=== PATIENT | female | born 1935 | race Caucasian/White ===

== ENCOUNTER 2017-12-24 23:11 | Emergency (ER) | payer MEDICARE ==
[~2017-12-24] VITALS: Ht 170.2 cm; Wt 70.5 kg
[~2017-12-24 23:11] MED LIST: ESTR0.6261 PO; MELA1TAB17 PO; OXYC-138 PO; OXYC-145 PO; PREG75CA30 PO; SYN0.0125T PO; TRAZ-143 PO
[2017-12-24] MEDS ORDERED: morphine 4 MG/ML inj SYRINge IV ONE (23:40)
[2017-12-24 23:57] LABS: BASOPHILS # (AUTO) 0.1 X10'3 (0-0.2); BASOPHILS % (AUTO) 1.4 % (0-1); EOSINOPHILS % (AUTO) 0.2 % (0-6); HEMATOCRIT 36.8 % (35.0-45.0); HEMOGLOBIN 12.3 g/dl (12.0-16.0); LYMPHOCYTES # (AUTO) 0.6 X10'3 (1.1-4.8); LYMPHOCYTES % (AUTO) 8.3 % (21-51); MEAN CORPUSCULAR HEMOGLOBIN 29.9 PG (27.0-31.0); MEAN CORPUSCULAR HGB CONC 33.5 % (33.0-36.5); MEAN CORPUSCULAR VOLUME 89.1 FL (78-98); MEAN PLATELET VOLUME 8.3 FL (7.4-10.4); MONOCYTES # (AUTO) 0.4 X10'3 (0-0.9); NEUTROPHILS # (AUTO) 5.6 X10'3 (1.8-7.7); NEUTROPHILS % (AUTO) 84.1 % (42-75); PLATELET COUNT 120 X10'3 (140-440); RED BLOOD COUNT 4.13 X10'6 (4.20-5.60); RED CELL DISTRIBUTION WIDTH 14.3 % (11.5-14.5); WHITE BLOOD COUNT 6.6 X10'3 (4.5-11.0)
[2017-12-25 00:09] LABS: PARTIAL THROMBOPLASTIN TIME 29 SECONDS (22-32)
[2017-12-25 00:13] LABS: ALANINE AMINOTRANSFERASE 28 U/L (12-78); ALBUMIN 2.7 G/DL (3.4-5.0); ALBUMIN/GLOBULIN RATIO 0.7 (1.1-1.5); ALKALINE PHOSPHATASE 229 IU/L (46-116); ANION GAP 4 (8-16); ASPARTATE AMINO TRANSFERASE 35 U/L (10-37); BILIRUBIN,TOTAL 0.6 MG/DL (0.1-1.0); BLOOD UREA NITROGEN 17 MG/DL (7-18); BUN/CREATININE RATIO 15.3 (6.6-38.0); CALCIUM 8.8 MG/DL (8.5-10.1); CHLORIDE 100 MMOL/L (99-107); CREATININE 1.11 MG/DL (0.40-0.90); GLUCOSE 114 MG/DL (70-104); POTASSIUM 4.3 MMOL/L (3.5-5.1); SODIUM 131 MMOL/L (135-145); TOTAL CARBON DIOXIDE 26.6 MMOL/L (24-32); TOTAL PROTEIN 6.5 G/DL (6.4-8.2); eGFR 47 ML/MIN
[2017-12-25 00:22] LABS: MAGNESIUM 2.2 MG/DL (1.5-2.4); TROPONIN I < 0.04 NG/ML (0.0-0.05)
[2017-12-25] MEDS ORDERED: oxyCODONE/APAP 10/325mg tablet PO ONE (01:45)
[2017-12-25 02:03] VITALS: BP 126/48
== END 2017-12-25 02:04 | disposition home or self-care (01) ==
LOC: ER 23:11
DX: S70.02XA Contusion of left hip, initial encounter (principal); J44.9 Chronic obstructive pulmonary disease, unspecified; F17.210 Nicotine dependence, cigarettes, uncomplicated; Z98.890 Other specified postprocedural states; Z88.8 Allergy status to other drugs, medicaments and biological substances; Z79.899 Other long term (current) drug therapy; Z95.0 Presence of cardiac pacemaker; W18.30XA Fall on same level, unspecified, initial encounter; Y93.89 Activity, other specified; Y92.89 Other specified places as the place of occurrence of the external cause; Y99.8 Other external cause status
CPT/HCPCS: 36415; 71045; 73502; 80053; 83605; 83735; 83880; 84145; 84484; 85025; 85610; 85730; 87040; 96374; 99285; J2270

== ENCOUNTER 2017-12-28 07:54 | Inpatient (IN) | payer MEDICARE ==
[~2017-12-28] VITALS: Ht 167.6 cm; Wt 75.9 kg
[~2017-12-28 07:54] MED LIST changes: -TRAZ-143 PO; +TRAZ-218 PO
[2017-12-28] MEDS ORDERED: normal saline 1000ML IV soln IVB ONE ×2 (08:20→09:50)
[2017-12-28] MEDS ORDERED: naloxone 2mg/2ml inj IV ONE (08:20)
[2017-12-28 09:01] LABS: BASOPHILS % (AUTO) 0.5 % (0-1); EOSINOPHILS # (AUTO) 0.1 X10'3 (0-0.9); EOSINOPHILS % (AUTO) 2.7 % (0-6); HEMATOCRIT 33.5 % (35.0-45.0); HEMOGLOBIN 11.4 g/dl (12.0-16.0); LYMPHOCYTES # (AUTO) 1.5 X10'3 (1.1-4.8); MEAN CORPUSCULAR HEMOGLOBIN 30.3 PG (27.0-31.0); MEAN PLATELET VOLUME 7.9 FL (7.4-10.4); MONOCYTES # (AUTO) 0.4 X10'3 (0-0.9); MONOCYTES % (AUTO) 7.8 % (2-12); NEUTROPHILS # (AUTO) 3.2 X10'3 (1.8-7.7); PLATELET COUNT 147 X10'3 (140-440); RED BLOOD COUNT 3.76 X10'6 (4.20-5.60); RED CELL DISTRIBUTION WIDTH 14.7 % (11.5-14.5); WHITE BLOOD COUNT 5.3 X10'3 (4.5-11.0)
[2017-12-28 09:04] LABS: CLARITY,URINE CLOUDY (Clear); COLOR,URINE YELLOW (Yellow); GLUCOSE, URINE NEGATIVE (Neg); KETONES,URINE TRACE mg/dl (Neg); LEUKOCYTE ESTERASE ,URINE MODERATE (Neg); NITRITES, URINE NEGATIVE (Neg); OCCULT BLOOD,URINE NEGATIVE (Neg); PROTEIN,URINE NEGATIVE (Neg)
[2017-12-28 09:09] LABS: UA COLLECTION TYPE STRAIGHT CATH
[2017-12-28 09:10] LABS: PROTHROMBIN TIME 10.1 SECONDS (9.0-12.0); URINE AMPHETAMINE SCREEN NEGATIVE (Neg); URINE BARBITUATE SCREEN NEGATIVE (Neg); URINE BENZODIAZEPINES SCREEN NEGATIVE (Neg); URINE CANNABINOID SCREEN NEGATIVE (Neg); URINE COCAINE SCREEN NEGATIVE (Neg); URINE METHADONE SCREEN NEGATIVE (Neg); URINE OPIATE SCREEN POSITIVE (Neg); URINE PHENCYCLIDINE SCREEN NEGATIVE (Neg)
[2017-12-28 09:13] LABS: BACTERIA,URINE 4+ /HPF (Neg); MUCUS STRANDS MANY /LPF (Neg); RBC,URINE 0-2 /HPF (0-2); SQUAMOUS EPITHELIAL CELL,UR MODERATE /LPF (FEW); WBC,URINE TNTC /HPF (0-4)
[2017-12-28 09:16] LABS: ALANINE AMINOTRANSFERASE 66 U/L (12-78); ALBUMIN 2.3 G/DL (3.4-5.0); ALBUMIN/GLOBULIN RATIO 0.6 (1.1-1.5); ALKALINE PHOSPHATASE 287 IU/L (46-116); ANION GAP 9 (8-16); ASPARTATE AMINO TRANSFERASE 136 U/L (10-37); BILIRUBIN,TOTAL 0.7 MG/DL (0.1-1.0); BLOOD UREA NITROGEN 27 MG/DL (7-18); BUN/CREATININE RATIO 13.6 (6.6-38.0); CALCIUM 8.2 MG/DL (8.5-10.1); CHLORIDE 103 MMOL/L (99-107); CREATININE 1.98 MG/DL (0.40-0.90); GLUCOSE 105 MG/DL (70-104); POTASSIUM 3.8 MMOL/L (3.5-5.1); SODIUM 137 MMOL/L (135-145); TOTAL PROTEIN 5.9 G/DL (6.4-8.2); eGFR 24 ML/MIN
[2017-12-28] MEDS ORDERED: CefTRIAXone/D5W-Rocephin 1gm 50 ML IV ONE (09:25)
[2017-12-28 09:26] LABS: ETHANOL < 0.010 GM/DL (0.0-0.010)
[2017-12-28 09:28] LABS: ACETAMINOPHEN 155.5 UG/ML (10-30)
[2017-12-28] MEDS ORDERED: GABA-530 PO (09:33)
[2017-12-28 09:54] LABS: CREATINE KINASE 2212 U/L (26-192)
[2017-12-28] MEDS ORDERED: acetaminophen 325mg tablet PO PRN ×2 (10:25)
[2017-12-28] MEDS ORDERED: magnesium 1gm/100ml D5W IVPB 100 ML IV PRN (10:25)
[2017-12-28] MEDS ORDERED: potassium Cl 20 mEq SR tablet PO PRN ×2 (10:25)
[2017-12-28] MEDS ORDERED: potassium Cl 40MEQ/NS 500ml 500 ML IV PRN ×2 (10:25)
[2017-12-28] MEDS ORDERED: ondansetron/PF 4mg/2ml inj IV PRN (10:25)
[2017-12-28] MEDS ORDERED: mag hydrox/Alum hydrox/simeth 30ml oral suspension PO PRN (10:25)
[2017-12-28] MEDS ORDERED: magnesium hydroxide 30ml (MOM) UD suspension PO PRN (10:25)
[2017-12-28] MEDS ORDERED: magnesium Cl slow-release 64mg tablet PO PRN (10:25)
[2017-12-28] MEDS ORDERED: magnesium 4gm in 100ml NS 100 ML IV PRN (10:25)
[2017-12-28] MEDS: normal saline 1000ml 1,000 ML IV SCH ×2 (10:37→14:00)
[2017-12-28 11:25] VITALS: BP 105/40
[2017-12-28] MEDS ORDERED: ACETYLCYSTEINE IV ONE ×3 (11:30→16:30)
[2017-12-28] MEDS ORDERED: DEXTROSE 5% IV ONE ×3 (11:30→16:30)
[2017-12-28] MEDS ORDERED: WATER IV ONE ×3 (11:30→16:30)
[2017-12-28 15:00] VITALS: BP 96/42
[2017-12-28] MEDS ORDERED: heparin, porcine 5000 units/ml vial SQ SCH (20:00)
[2017-12-28 22:00] VITALS: BP 100/50
[2017-12-29 06:00] VITALS: BP 96/37
[2017-12-29] MEDS: morphine 4 MG/ML inj SYRINge IV PRN ×4 (07:51→20:23)
[2017-12-29] MEDS: LORazepam 2 mg/ml vial IV PRN ×2 (07:52→15:07)
[2017-12-29] MEDS ORDERED: CefTRIAXone 2gm/D5W 50ml 50 ML IV SCH (08:00)
[2017-12-29] MEDS ORDERED: pantoprazole 40 MG vial IV SCH (08:00)
[2017-12-29] MEDS ORDERED: K and/or MAG REPLACEMENT MC SCH (08:00)
[2017-12-29] MEDS ORDERED: levoTHYROXINE 125mcg tablet PO SCH (08:00)
[2017-12-29 17:12] VITALS: BP 71/32
[2017-12-29 22:00] VITALS: BP_SYST 159; BP_SYST 85; BP_DIAS 35; BP_DIAS 67
== END 2017-12-30 01:30 | disposition expired | DRG 917 ==
LOC: ER 07:55 → ED HOLD 10:21 → PCU 3S 11:28
PROVIDERS: ADMIT Internal Medicine; ATTEND Internal Medicine
DX: T39.1X1A Poisoning by 4-Aminophenol derivatives, accidental (unintentional), initial encounter (principal); G92 Toxic encephalopathy; M62.82 Rhabdomyolysis; N39.0 Urinary tract infection, site not specified; N17.9 Acute kidney failure, unspecified; N18.9 Chronic kidney disease, unspecified; E03.9 Hypothyroidism, unspecified; G89.4 Chronic pain syndrome; J44.9 Chronic obstructive pulmonary disease, unspecified; T43.211A Poisoning by selective serotonin and norepinephrine reuptake inhibitors, accidental (unintentional), initial encounter; T40.602A Poisoning by unspecified narcotics, intentional self-harm, initial encounter; M79.7 Fibromyalgia; R09.2 Respiratory arrest; G62.9 Polyneuropathy, unspecified; Z51.5 Encounter for palliative care; Z66 Do not resuscitate; Z95.0 Presence of cardiac pacemaker; Z91.048 Other nonmedicinal substance allergy status; Z79.899 Other long term (current) drug therapy; Z82.49 Family history of ischemic heart disease and other diseases of the circulatory system; Y92.89 Other specified places as the place of occurrence of the external cause
CPT/HCPCS: 36415; 71045; 80053; 80305; 80320; 80329; 81001; 82550; 84443; 85025; 85610; 87077; 87088; 87186; 93005; J0132; J0696; J2060; J2270; J2310; J7030; J7060; J7070